=== PATIENT | female | born 1975 | race Two or more races ===

== ENCOUNTER 2019-02-19 15:26 | Emergency (ER) | payer OTHER ==
[~2019-02-19] VITALS: Wt 80.2 kg
[2019-02-19] MEDS ORDERED: LISI-471 PO (16:18)
[2019-02-19] MEDS ORDERED: AMLO5TAB4 PO (16:18)
[2019-02-19] MEDS ORDERED: NORE1TAB12 PO (16:19)
[2019-02-19] MEDS ORDERED: ATOR20TA38 PO (16:19)
--- NOTE | 2019-02-19 16:19 | ERD ---
ER Documentation Chief Complaint Chief Complaint L sided CP x2d; worse today. 04/30 reproducible. father recently anxiou HPI This is a 43-year-old female sent by her doctor for rule out PE. The patient flew back from [place] 10 days ago and the day after she landed she was started having some pain in her left anterior chest that radiated to her left bicep. She has a history of hypertension but no other medical problems she states. The chest pain, she does get short of breath. She has no resting dyspnea. At her doctor's office today she had a heart rate of 133 with an EKG with a heart rate of 120. Patient is a very poor historian ROS All systems reviewed and are negative except as per history of present illness. Medications Home Meds Reported Medications Noreth A-Et Estra/Fe Fumarate (LO LOESTRIN FE 1-10 TABLET) 1 Each Tablet, 1 EACH PO DAILY, TAB 02/19/19 Atorvastatin Calcium* (Atorvastatin Calcium*) 20 Mg Tablet, 20 MG PO QHS, #30 TAB 02/19/19 Amlodipine Besylate* (Norvasc*) 5 Mg Tablet, 5 MG PO DAILY, TAB 02/19/19 Lisinopril* (Lisinopril*) 20 Mg Tablet, 20 MG PO DAILY, #30 TAB 02/19/19 Allergies Allergies: Coded Allergies: No Known Allergy (Unverified , 02/19/19) PMhx/Soc Medical and Surgical Hx: pt denies Medical Hx, pt denies Surgical Hx Hx Alcohol Use: No Hx Substance Use: No Hx Tobacco Use: No Smoking Status: Never smoker FmHx Family History: No coronary disease Physical Exam Vitals Vital Signs Date Temp Pulse Resp B/P (MAP) Pulse Ox O2 O2 Flow FiO2 Time Delivery Rate 02/19/19 Nasal 2 17:51 Cannula 02/19/19 102 18 161/92 99 Room Air 16:41 (115) 02/19/19 98.7 121 22 172/106 98 15:34 (128) Physical Exam Const: Well-developed, well-nourished Head: Atraumatic, normocephalic Eyes: Normal Conjunctiva, PERRLA, EOMI, normal sclera, no nystagmus ENT: Normal External Ears, Nose and Mouth, moist mucus membranes. Neck: Full range of motion. No meningismus, no lymphadenopathy. Resp: Clear to auscultation bilaterally, no wheezing, rhonchi, rales Cardio: Tachycardia, no murmurs, S1 S2 present Abd: Soft, non tender x 4, non distended. Normal bowel sounds, no guarding or rebound, no pulsitile abdominal masses or bruits Skin: No petechiae or rashes, no ecchymosis , no maculopapular rash Back: No midline or flank tenderness Ext: No cyanosis, or edema, FROM x 4, normal inspection, neurovascularly intact x 4 Neur: Awake and alert, STR 5/5 x 4, sensation intact x 4, no focal findings, cerebellum intact Psych: Normal Mood and Affect Result Diagram: 02/19/19 1610 02/19/19 1610 Results 24 hrs Laboratory Tests Test 02/19/19 16:08 02/19/19 16:10 02/19/19 16:27 POC Beta HCG, Qualitative NEGATIVE White Blood Count 12.3 10^3/ul Red Blood Count 4.96 10^6/ul Hemoglobin 13.6 g/dl Hematocrit 40.4 % Mean Corpuscular Volume 81.5 fl Mean Corpuscular Hemoglobin 27.4 pg Mean Corpuscular Hemoglobin Concent 33.7 g/dl Red Cell Distribution Width 12.9 % Platelet Count 336 10^3/UL Mean Platelet Volume 10.2 fl Immature Granulocytes % 0.200 % Neutrophils % 65.8 % Lymphocytes % 26.4 % Monocytes % 6.2 % Eosinophils % 0.8 % Basophils % 0.6 % Nucleated Red Blood Cells % 0.0 /100WBC Immature Granulocytes # 0.030 10^3/ul Neutrophils # 8.1 10^3/ul Lymphocytes # 3.3 10^3/ul Monocytes # 0.8 10^3/ul Eosinophils # 0.1 10^3/ul Basophils # 0.1 10^3/ul Nucleated Red Blood Cells # 0.0 10^3/ul Prothrombin Time 11.8 Sec Prothrombin Time Ratio 0.9 INR International Normalized Ratio 0.86 Activated Partial Thromboplast Time 27.1 Sec Sodium Level 143 mmol/L Potassium Level 3.4 mmol/L Chloride Level 102 mmol/L Carbon Dioxide Level 30 mmol/L Anion Gap 11 Blood Urea Nitrogen 13 mg/dl Creatinine 0.57 mg/dl Est Glomerular Filtrat Rate mL/min > 60 mL/min Glucose Level 140 mg/dl Calcium Level 9.8 mg/dl Troponin I < 0.012 ng/ml B-Type Natriuretic Peptide 27 PG/ML Bedside Urine pH (LAB) 6.0 Bedside Urine Protein (LAB) 2+ Bedside Urine Glucose (UA) Negative Bedside Urine Ketones (LAB) Trace Bedside Urine Blood 3+ Bedside Urine Nitrite (LAB) Negative Bedside Urine Leukocyte Esterase (L 1+ Current Medications Medications Dose Sig/Laura Start Time Status Last (Trade) Ordered Route PRN Stop Time Admin Dose Reason Admin Aspirin 325 mg ONCE ONCE 02/19/19 DC 02/19/19 (Aspirin) PO 16:30 02/19/19 17:49 16:31 IV Flush 10 ml STK-MED 02/19/19 DC (NS 10 ml) ONCE .ROUTE 16:50 02/19/19 16:51 Sodium 100 ml @ ud STK-MED 02/19/19 DC Chloride ONCE .ROUTE 16:50 02/19/19 16:51 Iohexol 100 ml @ ud STK-MED 02/19/19 DC ONCE .ROUTE 16:50 02/19/19 16:51 Procedures/MDM EKG: Rate/Rhythm: Sinus tachycardia heart rate 120, nonspecific ST changes QRS, ST, QT: NORMAL SC, QRS, QT] Impression: Abnormal EKG [address] [place] [address] Radiology Main Line: [phone] DIAGNOSTIC IMAGING REPORT Patient: JEANNE LOMELI : 1975 Age: 43 Sex: F MR #: [id number] DOS: 02/19/19 1604 Ordering MD: JUAN MCCARTY DO Location: E/R Room/Bed: PROCEDURE: CTA Chest. CLINICAL INDICATION: Chest pain TECHNIQUE: The study was performed utilizing multidetector CT scanner. Direct spiral axial sections were obtained from the thoracic inlet to the upper abdomen with the use of 100 cc of Omnipaque 350 intravenous contrast material and refo rmatted. The images were reviewed on a PACS workstation. 3-D volume rendered images were performed. Sagittal and coronal reformatted images were obtained from the axial source images. DICOM images are available. DLP 523.41 mGy.cm mGycm CTDIvol 35.44 mGy mGy One or more of the following post reduction techniques were used: - Automated exposure control. - Adjustment of the mA and/or Kv according to patient's size. - Use of iterative reconstruction technique COMPARISON: No prior studies are available for comparison. FINDINGS: The study is nondiagnostic for pulmonary embolus due to the timing of the bolus of contrast. Pulmonary embolus cannot be excluded in the lower lobe segmental pulmonary arteries. The aorta is without aneurysmal dilatation or dissection. The lungs are clear. No abnormal soft tissue masses or nodular densities are visualized. There is no pleural effusion. There is no pericardial effusion. There are no pathologic enlarged mediastinal lymph nodes. The osseous structures are unremarkable. There is enlargement of the left lobe of the thyroid with multiple nodules, the largest measuring 1.5 cm. The thyroid extends inferiorly and causes mild devia tion of the trachea to the right. Scans through the upper abdomen are unremarkable. RPTAT: AA IMPRESSION: The study is nondiagnostic for pulmonary embolus due to the timing of the bolus of contrast. Repeat study is recommended. Pulmonary embolus cannot be excluded on the basis of this study. Enlarged left lobe of the thyroid with multiple nodules, causing mild deviation of the trachea to the right. Follow-up thyroid ultrasound is recommended. .Ti Lozada MD, MD Date Time Electronically viewed and signed by .Ti Lozada MD, on 02/19/2019 17:14 .S/ CC: JUAN MCCARTY DO [id number] The patient is stating she will not be admitted to the hospital and will leave AGAINST MEDICAL ADVICE. I reviewed with her the possibility of her having a pulmonary embolism or cardiac issue or thyroid issue. She states that she understands this but will follow up with her doctor tomorrow. I discussed the risk of leaving AGAINST MEDICAL ADVICE including and she said that she understands the risk and will still sign out. She is awake alert oriented and coherent to make her own decisions I did give her copies of her CAT scan report and labs. Her thyroid studies are currently pending Departure Diagnosis: Primary Impression: Chest pain Chest pain type: unspecified Qualified Codes: R07.9 - Chest pain, unspecified Condition: Fair JUAN MCCARTY DO February 19, 2019 16:19
[2019-02-19] MEDS ORDERED: ASPIRIN 325 MG TAB PO ONE (16:30)
[2019-02-19] MEDS ORDERED: SOD CHLORIDE 0.9% 100 ML ONE (16:50)
[2019-02-19] MEDS ORDERED: IOHEXOL 100 ML ONE (16:50)
[2019-02-19 18:30] VITALS: BP 137/77; PULSE 103; RESP 26
== END 2019-02-19 18:46 | disposition left against medical advice (07) ==
LOC: E/R 15:26
DX: R07.9 Chest pain, unspecified (principal); R40.2142 Coma scale, eyes open, spontaneous, at arrival to emergency department; R40.2252 Coma scale, best verbal response, oriented, at arrival to emergency department; R40.2362 Coma scale, best motor response, obeys commands, at arrival to emergency department; I10 Essential (primary) hypertension
CPT/HCPCS: 36415; 71275; 80048; 81003; 81025; 83880; 84439; 84443; 84484; 85025; 85610; 85730; 93005; Q9967; Z7502; Z7610